=== PATIENT | male | born 1995 | race Caucasian/White ===

== ENCOUNTER 2021-08-30 21:32 | Emergency (ER) | payer OTHER, SELFPAY ==
--- NOTE | ~2021-08-30 | CT_ITS ---
EXAMINATION: CT OF THE HEAD AND CERVICAL SPINE WITHOUT CONTRAST CLINICAL INFORMATION: Reason for Exam concussion . COMPARISON: None. TECHNIQUE: Contiguous axial imaging was performed from the skull base to vertex. Soft tissue and bony algorithms were evaluated. Coronal reformatted images were obtained on the technologist's workstation. Following this, multiple serial thin slice helical CT scan images through the cervical spine were obtained. Soft tissue and bony algorithms were evaluated. Coronal and sagittal reformatted images were obtained on the technologist workstation. This CT examination was performed using dose optimization techniques as appropriate, variously including the following: *Automated exposure control *Adjustment of mA and/or kV according to patient size (this includes techniques or standardized protocols for targeted exams where dose is matched to indication/reason for exam; i.e. extremities or head) *Use of iterative reconstruction technique DLP: 1393 mGy cm FINDINGS: Head CT: The ventricles are normal in size and symmetry. There is no evidence of acute intracranial hemorrhage or territorial infarction. No abnormal mass-effect or midline shift is seen. Pineda to white matter differentiation is well preserved. No extra-axial fluid collections are identified. There is no abnormal attenuation within the brain parenchyma. The osseous structures and soft tissues are normal. The mastoid air cells and visualized portions of the paranasal sinuses are well-aerated. Cervical spine CT: No prevertebral soft tissue swelling is appreciated. The bones are in normal anatomic alignment with mild straightening of the normal cervical lordosis possibly due to positioning or spasm but no acute fracture or spondylolisthesis. Vertebral body heights and disc heights are preserved. Posterior elements are unremarkable. Visualized airway and lung apices are unremarkable. Visualized thyroid gland unremarkable. CT/CT cervical spine wo con IMPRESSION: Head CT: No acute intracranial pathology. C-spine: No acute bony abnormality in the cervical spine.
[2021-08-30 21:54] VITALS: BP 139/85; PULSE 69; RESP 20; TEMP 36.7; O2SAT 98; BMI 20.9
--- NOTE | 2021-08-30 23:45 | ED_ITS ---
HPI - Head Injury General Chief complaint: Head Injury Stated complaint: possible concussion, having trouble answering Time Seen by Provider: 08/30/21 22:04 History of Present Illness HPI Narrative: Patient is a 22-year-old male status post playing tag and a piece of metal was forehead area. Patient feels that he is very forgetful afterward and remembers name. Feels that he has a headache. Patient feels very tired. There is no fever no chills. No coughing or congestion upper respiratory symptoms no neck pain. No diaphoresis. No focal weakness. Patient is ambulatory at the scene. Denies loss of consciousness. Remembers the incident. Not on blood thinners. Related Data Allergies Allergy/AdvReac Type Severity Reaction Status Date / Time amoxicillin Allergy Anaphylaxis Verified 08/30/21 21:58 Review of Systems Review of Systems: No fever no chills no chest pain or shortness breath no nausea no vomiting. Positive headache Yes all other systems are reviewed and are negative [facility] Past Medical History Attestation statement: The following information was validated with the patient. Social History Social History Advance Directives: No Advance Directives Information Provided: No Physical Exam Vital Signs: Vital Signs: Last Vital Signs Temp 98.1 F 08/30/21 21:54 Pulse 69 08/30/21 21:54 Resp 20 08/30/21 21:54 BP 139/85 08/30/21 21:54 Pulse Ox 98 08/30/21 21:54 BMI result Body Mass Index 20.9 Appearance: Alert. Oriented X3. No acute distress. Positive contusion to the right forehead area Eyes: Pupils equal, round and reactive to light. ENT: Pharynx normal. Neck: Normal inspection. Neck supple. No lymph nodes noted. No crepitus CVS: Normal heart rate and rhythm. Pulses normal. Normal S1 and S2 Respiratory: No respiratory distress. Breath sounds normal. No Wheezing. No rales Abdomen: Soft and nontender. No rigidity. No distention. good BS x4 Skin: Skin warm and dry. Normal skin color. Normal skin turgor. Extremities: No lower extremity edema. Neurovascular intact to all extremities. No Lacerations. No Rash Neuro: Oriented X 3. No motor deficit. No sensory deficit. Moving all extermities. No slurred speech MDM - Head Injury MDM Narrative Medical decision making narrative: CT scan of the head and C-spine were both grossly negative for any acute evidence of fracture no bleeding. Patient is to suffered concussion. Will need follow-up on an outpatient basis. He is in stable condition. Medical Records Attestation: I reviewed the patient's medical records. Discharge Plan Discharge Clinical Impression: Concussion without loss of consciousness Patient Disposition: Home, Self-Care Instructions: Concussion (ED) Referrals: Xiomara Gaming MD [Physician] - (Avoid head injury. Worsen headache, nausea vomiting return to the emergency department. Take full head injury precaution.)
== END 2021-08-31 00:22 | disposition home or self-care (01) ==
PROVIDERS: Emergency Provider Emergency Medicine Emergency Medical Services
DX: S06.0X0A Concussion without loss of consciousness, initial encounter (principal); M54.2 Cervicalgia; Y29.XXXA Contact with blunt object, undetermined intent, initial encounter; Y93.9 Activity, unspecified; Y92.9 Unspecified place or not applicable; Y99.9 Unspecified external cause status
CPT/HCPCS: 70450; 72125; 99283

== ENCOUNTER 2021-10-17 00:04 | Emergency (ER) | payer OTHER, SELFPAY ==
--- NOTE | ~2021-10-17 | XR_ITS ---
EXAMINATION: XR LUMBAR SPINE XR PELVIS CLINICAL INFORMATION: Right-sided pain, fall COMPARISON: None TECHNIQUE: 3 views of the lumbar spine. AP pelvis. FINDINGS: Lumbar spine: There is anatomic alignment of the lumbar vertebral bodies and posterior elements. Vertebral body heights are maintained. Intervertebral disc spaces appear preserved. No acute fracture is seen. Pelvis: Alignment across the hips is anatomic. No acute fracture is seen. Sacroiliac joints and pubic symphysis appear intact. XR/XR lumbar spine 2-3V IMPRESSION: No acute findings identified in the lumbar spine or pelvis.
--- NOTE | ~2021-10-17 | XR_ITS ---
EXAMINATION: XR LUMBAR SPINE XR PELVIS CLINICAL INFORMATION: Right-sided pain, fall COMPARISON: None TECHNIQUE: 3 views of the lumbar spine. AP pelvis. FINDINGS: Lumbar spine: There is anatomic alignment of the lumbar vertebral bodies and posterior elements. Vertebral body heights are maintained. Intervertebral disc spaces appear preserved. No acute fracture is seen. Pelvis: Alignment across the hips is anatomic. No acute fracture is seen. Sacroiliac joints and pubic symphysis appear intact. XR/XR pelvis 1-2V IMPRESSION: No acute findings identified in the lumbar spine or pelvis.
[2021-10-17 00:14] VITALS: BP 125/70; PULSE 97; RESP 20; TEMP 36.8; O2SAT 97
--- NOTE | 2021-10-17 00:46 | ED.BACK ---
HPI - Back Pain/Injury General Chief Complaint: Back Pain/Injury Stated Complaint: fall Time Seen by Provider: 10/17/21 00:38 Source: patient Mode of arrival: ambulatory Limitations: no limitations History of Present Illness HPI Narrative: 26 yo male no PMH here with c/o R low back pain after fall at 930pm while playing hockey he had no head injury or LOC. No b/b incontinence no saddle anesthesia. No other injuries reported MD elicited complaint: back pain and back injury Onset (ago): hour(s) (3) Timing: constant Severity: moderate Similar Symptoms Previously: No Quality: aching and throbbing Location: lumbar spine Radiation: none Exacerbating factors: movement Relieving factors: none Context: fall Associated symptoms: denies other symptoms Work related injury: No Related Data Previous Rx's Medication Instructions Recorded cyclobenzaprine 10 mg tablet 10 mg PO TID PRN muscle spasm #14 10/17/21 tabs ibuprofen 600 mg tablet 600 mg PO Q6H PRN pain #30 tabs 10/17/21 lidocaine 5 % topical patch 1 patch topical DAILY #30 ea 10/17/21 Allergies Allergy/AdvReac Type Severity Reaction Status Date / Time amoxicillin Allergy Anaphylaxis Verified 10/17/21 00:12 Review of Systems Review of Systems: Constitutional : No Weight loss, No Fever, No Chills, ENT/Mouth : No Hearing loss, No Ear Pain, No Nasal Congestion, No Sinus Pain, No Hoarseness, No sore throat, No Rhinorrhea, No Swallowing Difficulty Cardiovascular : No Chest Pain, No SOB Respiratory : No Cough, No Dyspnea Gastrointestinal : No Nausea, No Vomiting, No Diarrhea, No abdominal Pain, No Hematochezia, No Melena Genitourinary : No Dysuria, No Urinary Frequency, No Hematuria, No Urinary Incontinence, Musculoskeletal : positive back pain Skin : No Skin Lesions, No rash Neuro : No Weakness, No Numbness, No Paresthesias, no loss of bowel or bladder incontinence, no saddle anesthesia [facility] Past Medical History Attestation statement: The following information was validated with the patient. Medical History No pertinent past medical history Social History Social History (Updated 10/17/21 @ 00:48 by Mirta Sharma DO) Patient Tobacco Use Status: Never used Tobacco Advance Directives: No Advance Directives Information Provided: No Physical Exam Vital Signs: Vital Signs: Last Vital Signs Temp 98.2 F 10/17/21 00:14 Pulse 97 10/17/21 00:14 Resp 20 10/17/21 00:14 BP 125/70 10/17/21 00:14 Pulse Ox 97 10/17/21 00:14 O2 Del Method 10/17/21 00:14 BMI result Body Mass Index 20.0 Appearance: Alert. Oriented X3. No acute distress. Eyes: Pupils equal, round and reactive to light. ENT: Pharynx normal. Neck: Normal inspection. Neck supple. CVS: Normal heart rate and rhythm. Pulses normal. Respiratory: No respiratory distress. Breath sounds normal. Abdomen: Soft and nontender. Back: ttp along R lower lumbar and sacral area Skin: Skin warm and dry. Normal skin color. Normal skin turgor. Extremities: No lower extremity edema. No calf ttp Neuro: Oriented X 3. No motor deficit. No sensory deficit. 2+ DTR in patella and SILT inner thigh Course Course Course Narrative: xrays negative will refer to PCP MDM - Back Pain/Injury MDM Narrative Medical decision making narrative: 26 yo male with low back pain post fall while playing hockey no other injuries reported no CE symptoms no red flags, patient is NV intact. Will obtain xrays of lumbar spine/pelvis. PO pain control. Dispo per xrays. Discharge Plan Discharge Clinical Impression: Strain of lumbar region Patient Disposition: Home, Self-Care Instructions: Acute Low Back Pain (ED) Additional Instructions: return to ED for any worsening symptoms or concerns FINDINGS: Lumbar spine: There is anatomic alignment of the lumbar vertebral bodies and posterior elements. Vertebral body heights are maintained. Intervertebral disc spaces appear preserved. No acute fracture is seen. Pelvis: Alignment across the hips is anatomic. No acute fracture is seen. Sacroiliac joints and pubic symphysis appear intact.? XR/XR pelvis 1-2V IMPRESSION: No acute findings identified in the lumbar spine or pelvis.? Prescriptions: New cyclobenzaprine 10 mg tablet 10 mg PO TID PRN (Reason: muscle spasm) Qty: 14 0RF lidocaine 5 % adhesive patch,medicated 1 patch topical DAILY Qty: 30 0RF Rx Instructions: leave on most painful area for up to 12 hrs ibuprofen 600 mg tablet 600 mg PO Q6H PRN (Reason: pain) Qty: 30 0RF Referrals: Judy Huston MD [Primary Care Provider] - 3 days (if not better) Stand Alone Forms: Work/School Release
[2021-10-17] MEDS: Cyclobenzaprine HCl 10 MG TABLET PO (00:50)
[2021-10-17] MEDS: Ibuprofen 600 MG TABLET PO (00:50)
== END 2021-10-17 01:23 | disposition home or self-care (01) ==
PROVIDERS: Emergency Provider Emergency Medicine; PCP Internal Medicine
DX: S39.012A Strain of muscle, fascia and tendon of lower back, initial encounter (principal); X50.1XXA Overexertion from prolonged static or awkward postures, initial encounter; Y93.22 Activity, ice hockey; Y92.330 Ice skating rink (indoor) (outdoor) as the place of occurrence of the external cause; Y99.9 Unspecified external cause status
CPT/HCPCS: 72100; 72170; 99283

== ENCOUNTER 2023-09-21 13:47 | Outpatient (AMB) | payer OTHER, SELFPAY ==
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
[2023-09-21 13:59] VITALS: BP 114/76; PULSE 97; RESP 16; TEMP 36.8; O2SAT 97; BMI 24.2
== END 2023-09-21 14:41 | disposition home or self-care (01) ==
PROVIDERS: PCP Internal Medicine; Visit Provider Internal Medicine
DX: Z87.828 Personal history of other (healed) physical injury and trauma (principal); Z87.820 Personal history of traumatic brain injury; M54.41 Lumbago with sciatica, right side; M54.42 Lumbago with sciatica, left side; G89.29 Other chronic pain; M54.2 Cervicalgia
CPT/HCPCS: 99214